=== PATIENT | female | born 1955 | race Caucasian/White ===

== ENCOUNTER 2018-01-14 08:22 | Day surgery (SDC) | payer BC ==
[2018-01-13 17:01] VITALS: BMI 28.3
[2018-01-14] MEDS ORDERED: LIDOCAINE 1%/EPI 1:100000 (20 ML MULTI DOSE VIAL) ONE (09:19)
--- NOTE | 2018-01-14 09:33 | OP ---
Operative Note - Note: Operative Date: 01/14/18 Pre-Operative Diagnosis: left thumb trigger Operation: tenovagintomy tenosynovectomy left thumb Findings: sts Surgeon: Edward Albright V Anesthesia: General Specimens Removed: n Estimated Blood Loss (mls): 1 Operative Report Dictated: Yes
[2018-01-14] MEDS ORDERED: MIDAZOLAM HCL 2 MG/2 ML SINGLE DOSE VIAL ONE (10:34)
[2018-01-14] MEDS ORDERED: PROPOFOL 20 ML ONE ×2 (10:38)
[2018-01-14 11:46] VITALS: TEMP 96
--- NOTE | 2018-01-14 12:01 | OP ---
DATE OF OPERATION: 01/14/2018 PREOPERATIVE DIAGNOSIS: Left thumb stenosing tenosynovitis. POSTOPERATIVE DIAGNOSIS: Left thumb stenosing tenosynovitis. PROCEDURE PERFORMED: Tenovaginotomy, tenosynovectomy, left thumb flexors. HISTORY: A 62-year-old lady who was not improving despite conservative measures with this injury. She is here for surgical release. The risks and benefits have been explained carefully and understood both by the patient and her who I know as well. PROCEDURE: Patient brought to the operating room and placed on the table in the supine position. No antibiotics were given. A light sedative was given by Anesthesia. Local infiltration with 1% lidocaine was performed using a 25-gauge needle. Approximately 5 mL were utilized in the proposed incision site. Proper timeout was performed with confirmation of site, etc., and pneumatic tourniquet, Esmarch bandage and loupe magnification were used. A volar incision was made directly over the A1 joi. Spreading was taken down through the subcutaneous tissue. The neurovascular bundles of the thumb were carefully localized and kept from harm's way behind blunt retractors for the remainder of the case. The A1 joi was now transected along its entire length using a 15 blade and the flexor tendon mass was lifted up. The flexor tendon mass was covered with a dense, unyielding and bulky flexor tenosynovitis. Flexor tenosynovectomy was therefore performed. We irrigated thoroughly. The patient was asked to move the thumb through a full range of motion which she was able to do. She was quite sleepy, but she was able to do this. We closed with nylon. Dressing was applied with Tegaderm on top and then an Vargas bandage. She returned to recovery having tolerated the procedure well. She will be discharged to home with hand sheet. The medication will be Advil for pain only. I will see her in the office for followup in 1 week. NIKI OKEEFE M.D. [id number]
[2018-01-14 12:03] VITALS: BP 132/72; PULSE 56
== END 2018-01-14 12:06 | disposition home or self-care (01) ==
LOC: FASU 08:22
PROVIDERS: ATTEND Orthopaedic Surgery
PROC: 0LN80ZZ Release Left Hand Tendon, Open Approach (ICD-10-PCS; principal; 2018-01-14 10:00)
DX: M65.312 Trigger thumb, left thumb (principal)